=== PATIENT | female | born 1990 | race Two or more races ===

== ENCOUNTER 2016-08-06 10:21 | Observation (INO) | payer SELFPAY ==
[~2016-08-06] VITALS: Ht 154.9 cm; Wt 72.1 kg
[2016-08-06 12:00] VITALS: BP 103/63
[2016-08-06] MEDS ORDERED: IV RINGERS,LACTATED 1000ML 1,000 ML IV SCH (16:14)
[2016-08-06] MEDS ORDERED: LIDOCAINE 1% PF 30 ML VIAL. INJ PRN (16:15)
[2016-08-06] MEDS ORDERED: OXYTOCIN 30 UNIT/500 ML PREMIX 500 ML IV PRN ×3 (16:15→19:15)
[2016-08-06] MEDS ORDERED: FENTANYL PF 100 MCG/2 ML VIAL. IV PRN (16:15)
[2016-08-06] MEDS ORDERED: IBUPROFEN 600 MG TABLET. PO PRN (16:15)
[2016-08-06] MEDS ORDERED: BUTORPHANOL 2 MG VIAL. IV PRN ×2 (16:15)
[2016-08-06] MEDS ORDERED: PNV1TABL25 PO (16:56)
[2016-08-06] MEDS ORDERED: FERR-26 PO (16:57)
[2016-08-06 17:42] LABS: HEMATOCRIT 31.2 % (36.0-47.0); RED CELL DISTRIBUTION WIDTH 14.5 % (11.5-14.5); WHITE BLOOD COUNT 12.8 x10^3/uL (4.0-11.0)
[2016-08-06] MEDS ORDERED: HYDROCODONE/APAP 5/325MG TABLET. PO PRN (19:15)
[2016-08-06] MEDS ORDERED: PHENYLEPH/MINERAL OIL/PETROLAT RECTAL OINTMENT 28GM TUBE. RC PRN (19:15)
[2016-08-06] MEDS ORDERED: 0.9 % SODIUM CHLORIDE 10 ML DISP.SYRIN. IV PRN (19:15)
[2016-08-06] MEDS ORDERED: MAG HYDROX/AL HYDROX/SIMETH 30 ML ORAL.SUSP PO PRN (19:15)
[2016-08-06] MEDS ORDERED: DIPHENHYDRAMINE HCL 25 MG CAPSULE PO PRN (19:15)
[2016-08-06] MEDS ORDERED: BENZOCAINE 20% TOPICAL AEROSOL SPRAY 57GM CAN. TP PRN (19:15)
[2016-08-06] MEDS ORDERED: SIMETHICONE 80 MG TAB.CHEW PO PRN (19:15)
[2016-08-06] MEDS ORDERED: ACETAMINOPHEN 325 MG TABLET. PO PRN (19:15)
[2016-08-06] MEDS ORDERED: HYDROCORTISONE 1% TOPICAL OINTMENT 30GM TUBE. TP PRN (19:15)
[2016-08-06] MEDS ORDERED: MAGNESIUM HYDROXIDE 2,400 MG/30 ML ORAL.SUSP. PO PRN (19:15)
[2016-08-06] MEDS ORDERED: ZOLPIDEM 5 MG TABLET. PO PRN (19:15)
--- NOTE | 2016-08-06 19:37 | PDOC ---
VAGINAL DELIVERY DATE DATE: 08/06/16 TIME: 19:31 : 2 Para: 1 EGA: 38/2 VAGINAL DELIVERY: VTX PLACENTA: Spontaneous SEX: Male WEIGHT 7#1oz Nuchal Cord: No Amniotic Fluid: Clear PAIN: Local EPISIOTOMY: No EXTENSION: No EBL 300cc COMPLICATIONS None CONDITION Stable Signs of Intrauterine Infectio: None Shoulder Dystocia: No DIAGNOSIS TIUP dek Problems: CAROLYN MCCLURE MD Aug 06, 2016 19:37
[2016-08-07 00:28] VITALS: BP 96/59
[2016-08-07 05:15] VITALS: BP 108/66
[2016-08-07] MEDS: IBUPROFEN 800 MG TABLET. PO SCH ×2 (05:22→16:05)
[2016-08-07] MEDS: FERROUS SULFATE 325 MG TABLET PO SCH ×2 (08:13→17:07)
--- NOTE | 2016-08-07 10:14 | PDOC ---
Provider Note Provider Note Doing well VSS Uterus NTTP FU in AM CAROLYN MCCLURE MD Aug 07, 2016 10:14
[2016-08-07 10:50] VITALS: BP 100/65
[2016-08-07 15:05] VITALS: BP 105/66
[2016-08-07 18:10] VITALS: BP 109/61
[2016-08-07 22:30] VITALS: BP 102/62
[2016-08-08] MEDS: IBUPROFEN 800 MG TABLET. PO SCH ×2 (06:01→14:55)
[2016-08-08 06:02] VITALS: BP 96/62
[2016-08-08] MEDS: FERROUS SULFATE 325 MG TABLET PO SCH (08:42)
[2016-08-08 10:05] VITALS: BP 98/56
--- NOTE | 2016-08-08 11:25 | PDOC3 ---
OB DISCHARGE SUMMARY DATE OF ADMISSION: 08/06/16 DATE OF DISCHARGE: 08/08/16 REASON FOR ADMISSION: Onset of labor PROCEDURES: Ultrasound INTRAPARTUM PROCEDURES: Spontanous Vag Deliv PROCEDURES: None OPERATIONS: None DISCHARGE DIAGNOSIS: Term Delivered DISCHARGE INFORMATION: Activity, Diet HOSPITAL COURSE Unremarkable CONDITION AT DISCHARGE Stable CAROLYN MCCLURE MD Aug 08, 2016 11:25
[2016-08-08] MEDS ORDERED: NAPR500T PO (11:26)
[2016-08-08] MEDS ORDERED: HYDR-971 PO (11:26)
--- NOTE | 2016-08-08 11:29 | PDOC1 ---
OB - History Hx of Present Care: Good Care Ultrasounds: Normal mid trimester US Obstetrical Complications: None Medical Complications: None Past Family/Social History * Past Medical, Surgical, Family and Obstetric Histories reviewed from chart. Blood Type: O+ Rubella: Immune RPR/VDRL: Negative GBS Status: Negative HBsAG: Negative OB - Chief Complaint & HPI Date of Admission: Date of Admission: Aug 06, 2016 at 10:21 Chief Complaint/History : 2 Para: 1 EDC: Aug 18, 2016 Reason for admission: active labor Admission Nurse Assessment Rev: Yes Problems: OB - Admission Exam Physical Exam Vitals: VS - Last 72 Hours, by Label Date Time Temp Pulse Resp B/P Pulse Ox O2 Delivery O2 Flow Rate FiO2 08/08/16 06:02 97.4 88 16 96/62 Room Air 97.4 08/07/16 22:30 98.3 85 16 102/62 Room Air 98.3 08/07/16 18:10 97.9 89 20 109/61 98 Room Air 97.9 08/07/16 15:05 97.9 99 16 105/66 98 Room Air 97.9 08/07/16 10:50 97.5 93 16 100/65 97 Room Air 97.5 08/07/16 09:16 16 Room Air 08/07/16 08:16 16 Room Air 08/07/16 05:15 98.3 87 108/66 98.3 08/07/16 00:28 98.3 110 18 96/59 98.3 08/06/16 12:00 98.0 93 18 103/63 Room Air 98.0 HEENT: Normal, Nasal Mucosa Normal, Oropharynx Normal, Moist Membranes, Fontanelles Normal Heart: Regular Rate Lungs: Clear, Equal Abdomen: Gravid Extremities: Normal Pulses, No tenderness or swelling Cervical Dilatation: 2cm Effacement: 75% Station: Ballotable Membranes: Intact Amniotic Fluid: Clear Heart Rate: Normal Accelerations: Accelerations Present Intensity: Moderate Assessment/Plan Assessment/Plan TIUP Labor ACS CAROLYN MCCLURE MD Aug 08, 2016 11:29
[2016-08-08 15:35] VITALS: BP 106/76
== END 2016-08-08 15:50 | disposition home or self-care (01) ==
LOC: 3 SO LND 10:21 → 3 NORTH 22:52
PROVIDERS: ADMIT Specialist; ATTEND Specialist
DX: O80 Encounter for full-term uncomplicated delivery (principal)
CPT/HCPCS: 36415; 59409; 85014; 85027; 86850; 86900; 86901; 96374; G0378; G0379; J2590; J3010; 86593; J7120